=== PATIENT | female | born 1990 | race Caucasian/White ===

== ENCOUNTER 2017-04-29 01:27 | Emergency (ER) | payer MEDICAID ==
[2017-04-29 02:56] LABS: BASOPHIL % 0.7 % (0-2); PLATELET COUNT 264 x10^3mcL (130-400); RED CELL DISTRIBUTION WIDTH 13.1 % (11.5-14.5)
[2017-04-29 03:00] LABS: CALCIUM 9.3 mg/dL (8.5-10.1); CARBON DIOXIDE 30.9 mmol/L (21-32); CHLORIDE SERUM 102 mmol/L (98-107); CREATININE SERUM 0.7 mg/dL (0.6-1.0); GFR1 > 60 mL/min; GLUCOSE SERUM 114 mg/dL (74-106); POTASSIUM SERUM 3.5 mmol/L (3.5-5.1); SODIUM SERUM 141 mmol/L (136-145)
[2017-04-29 03:06] LABS: ALBUMIN 3.9 g/dL (3.4-5.0); ALKALINE PHOSPHATASE 112 U/L (46-116); ALT/SGPT 51 U/L (14-59); AST/SGOT 21 U/L (15-37); BILIRUBIN TOTAL 0.27 mg/dL (0.20-1.00)
[2017-04-29 03:14] LABS: TOTAL PROTEIN, SERUM 8.5 g/dL (6.4-8.2)
[2017-04-29 03:56] VITALS: BP 133/81
== END 2017-04-29 03:56 | disposition home or self-care (01) ==
LOC: ED 01:27
DX: R07.81 Pleurodynia (principal)
CPT/HCPCS: 83880; 85378; J1885; Q0092